=== PATIENT | female | born 1955 | race Caucasian/White ===

== ENCOUNTER 2017-01-09 12:50 | Emergency (ER) | payer SELFPAY ==
[~2017-01-09] VITALS: Ht 170.2 cm; Wt 68.0 kg
[~2017-01-09 12:50] MED LIST: MECL-62 PO
[2017-01-09 13:05] VITALS: BP 188/87; PULSE 85; RESP 18; TEMP 97.5; O2SAT 96
[2017-01-09] MEDS ORDERED: LORazepam 2 MG/ML VIAL IV PUSH ONE (13:15)
[2017-01-09] MEDS ORDERED: SODIUM CHLORIDE 0.9% FLUSH 10 ML FLUSH IVF PRN (13:15)
[2017-01-09] MEDS ORDERED: ASPIRIN 81 MG CHEW TAB PO ONE (13:15)
[2017-01-09 13:17] VITALS: O2SAT 96
[2017-01-09 13:35] LABS: AUTOMATED NEUTROPHIL # 5.8 TH/MM3 (1.8-7.7); BASOPHIL # 0.1 TH/MM3 (0-0.2); BASOPHIL % 1.2 % (0.0-2.0); EOSINOPHIL % 0.5 % (0.0-4.0); HEMATOCRIT 45.8 % (35.0-46.0); HEMO FLAGS DIFF FINAL; LYMPH % 33.2 % (9.0-44.0); LYMPHOCYTE # 3.2 TH/MM3 (1.0-4.8); MEAN CELL VOLUME 91.4 FL (80.0-100.0); MEAN CORPUSCULAR HEMOGLOBIN 30.9 PG (27.0-34.0); MEAN CORPUSCULAR HGB CONC 33.7 % (32.0-36.0); MONO % 4.8 % (0.0-8.0); NEUT % 60.3 % (16.0-70.0); PLATELET COUNT 196 TH/MM3 (150-450); RED BLOOD COUNT 5.01 MIL/MM3 (4.00-5.30); RED CELL DISTRIBUTION WIDTH 13.7 % (11.6-17.2); WHITE BLOOD COUNT 9.6 TH/MM3 (4.0-11.0)
--- NOTE | 2017-01-09 13:37 | RADHPO ---
EXAM DATE/TIME: 01/09/2017 13:12 [facility] COMPARISON: No previous studies available for comparison. INDICATIONS : Dizziness. Blurred vision. RADIATION DOSE: 64.31 CTDIvol (mGy) MEDICAL HISTORY : Cerebrovascular disease. SURGICAL HISTORY : Hysterectomy. ENCOUNTER: Initial ACUITY: 1 day PAIN SCALE: 0/10 LOCATION: cranial TECHNIQUE: Multiple contiguous axial images were obtained of the head. Using automated exposure control and adj ustment of the mA and/or kV according to patient size, radiation dose was kept as low as reasonably a chievable to obtain optimal diagnostic quality images. FINDINGS: CEREBRUM: The ventricles are normal for age. No evidence of midline shift, mass lesion, hemorrhage or acute in farction. No extra-axial fluid collections are seen. POSTERIOR FOSSA: The cerebellum and brainstem are intact. The 4th ventricle is midline. The cerebellopontine angle i s unremarkable. EXTRACRANIAL: The visualized portion of the orbits is intact. SKULL: The calvaria is intact. No evidence of skull fracture. CONCLUSION: 1. No acute atrial abnormality identified. Merlin Jackson MD on January 09, 2017 at 13:33 Board Certified Radiologist. This report was verified electronically.
[2017-01-09 13:42] LABS: CHLORIDE 102 MEQ/L (98-107); POTASSIUM 4.1 MEQ/L (3.5-5.1); SODIUM (NA) 140 MEQ/L (136-145)
[2017-01-09 13:49] LABS: ANION GAP 10 MEQ/L (5-15); BLOOD UREA NITROGEN 9 MG/DL (7-18); MAGNESIUM 2.1 MG/DL (1.5-2.5)
--- NOTE | 2017-01-09 13:49 | RADHPO ---
EXAM DATE/TIME: 01/09/2017 13:37 [facility] COMPARISON: No previous studies available for comparison. INDICATIONS : Chest pain. Short of breath. Blurred vision. MEDICAL HISTORY : CVA. SURGICAL HISTORY : Hysterectomy. ENCOUNTER: Initial ACUITY: 1 day PAIN SCORE: 0/10 LOCATION: chest FINDINGS: A single view of the chest demonstrates the lungs to be symmetrically aerated without evidence of mas s, infiltrate or effusion. The cardiomediastinal contours are unremarkable. Osseous structures are intact. CONCLUSION: No acute disease. Julito Jackson MD FACR on January 09, 2017 at 13:47 Board Certified Radiologist. This report was verified electronically.
[2017-01-09 13:51] LABS: ALT (GPT) 19 U/L (10-53); AST (GOT) 29 U/L (15-37); GLOMERULAR FILTRATION RATE 77 ML/MIN (>89)
[2017-01-09 13:53] LABS: TOTAL BILIRUBIN ADULT 0.6 MG/DL (0.2-1.0)
[2017-01-09 13:54] LABS: ALKALINE PHOSPHATASE 92 U/L (45-117); CREATINE KINASE 130 U/L (26-192)
[2017-01-09 14:06] LABS: CKMB LESS THAN 0.5 NG/ML (0.5-3.6)
[2017-01-09 14:21] LABS: APTT (PATIENT) 26.8 SEC (24.3-30.1); PROTHROMBIN TIME - PATIENT 10.7 SEC (9.8-11.6)
--- NOTE | 2017-01-09 14:21 | PD ---
HPI . Feeling funny all over Chief Complaint: Chest Pain Time Seen by Provider: 13:07 Travel History International Travel<30 days: No Contact w/Intl Traveler<30days: No Traveled to known affect area: No History of Present Illness HPI Patient presents stating that she feels funny all over. She is tremulous. She states her eyes are crossed. She states that her forehead feels like it swollen. This all started about 10 AM. She reports that a friend of hers just a few days ago. She states that her symptoms are severe. She denies any exacerbating or relieving factors. PFSH Past Medical History Cerebrovascular Accident: Yes (AGE 21 NO RESIDUAL WEAKNESS) Tetanus Vaccination: < 5 Years Influenza Vaccination: No ?: Not Past Surgical History Hysterectomy: Yes Social History Alcohol Use: No Tobacco Use: Yes (1/2 PACK DAY) Substance Use: Yes (MARIJUANA AT TIMES) Allergies-Medications (Allergen,Severity, Reaction): Coded Allergies: No Known Allergies (Unverified , 01/09/17) Reported Meds & Prescriptions Reported Meds & Active Scripts Active No Active Prescriptions or Reported Medications Review of Systems Except as stated in HPI: all other systems reviewed are Neg General / Constitutional: No: Fever, Chills Eyes: Positive: Diploplia, Blurred Vision HENT: Positive: Other (forehead feel swollen) Neurologic: Positive: Tremor, Paresthesia Physical Exam Narrative GENERAL: Patient is visibly tremulous. SKIN: Warm and dry. HEAD: Atraumatic. Normocephalic. EYES: Pupils equal and round. Extraocular movements are intact. ENT: No nasal bleeding or discharge. Mucous membranes pink and moist. NECK: Trachea midline. Neck is supple. CARDIOVASCULAR: Regular rate and rhythm. Heart sounds are normal. RESPIRATORY: No accessory muscle use. Lungs are clear with full air movement throughout. GASTROINTESTINAL: Abdomen soft, non-tender, nondistended. MUSCULOSKELETAL: No obvious deformities. No edema. NEUROLOGICAL: Awake and alert. No obvious cranial nerve deficits. Motor grossly within normal limits. Normal speech. Normal [id number] exam. PSYCHIATRIC: Appropriate mood and affect; insight and judgment normal. Data Data Last Documented VS Vital Signs Date Time Temp Pulse Resp B/P Pulse Ox O2 Delivery O2 Flow Rate FiO2 01/09/17 13:17 96 Room Air 01/09/17 13:08 85 01/09/17 13:05 97.5 18 188/87 Orders Ckmb (Isoenzyme) Profile (01/09/17 13:07) Complete Blood Count With Diff (01/09/17 13:07) Comprehensive Metabolic Panel (01/09/17 13:07) Magnesium (Mg) (01/09/17 13:07) Prothrombin Time / Inr (Pt) (01/09/17 13:07) Act Partial Throm Time (Ptt) (01/09/17 13:07) Troponin I (01/09/17 13:07) Chest, Single Ap (01/09/17 13:07) Ecg Monitoring (01/09/17 13:07) Iv Access Insert/Monitor (01/09/17 13:07) Oximetry (01/09/17 13:07) Aspirin Chew (Aspirin Chew) (01/09/17 13:15) Sodium Chloride 0.9% Flush (Ns Flush) (01/09/17 13:15) Lorazepam Inj (Ativan Inj) (01/09/17 13:15) Ct Brain W/O Iv Contrast(Rout) (01/09/17 13:07) CKMB (01/09/17 13:00) CKMB% (01/09/17 13:00) Labs Laboratory Tests Test 01/09/17 13:00 White Blood Count 9.6 TH/MM3 Red Blood Count 5.01 MIL/MM3 Hemoglobin 15.5 GM/DL Hematocrit 45.8 % Mean Corpuscular Volume 91.4 FL Mean Corpuscular Hemoglobin 30.9 PG Mean Corpuscular Hemoglobin 33.7 % Concent Red Cell Distribution Width 13.7 % Platelet Count 196 TH/MM3 Mean Platelet Volume 10.4 FL Neutrophils (%) (Auto) 60.3 % Lymphocytes (%) (Auto) 33.2 % Monocytes (%) (Auto) 4.8 % Eosinophils (%) (Auto) 0.5 % Basophils (%) (Auto) 1.2 % Neutrophils # (Auto) 5.8 TH/MM3 Lymphocytes # (Auto) 3.2 TH/MM3 Monocytes # (Auto) 0.5 TH/MM3 Eosinophils # (Auto) 0.0 TH/MM3 Basophils # (Auto) 0.1 TH/MM3 CBC Comment DIFF FINAL Differential Comment Prothrombin Time 10.7 SEC Prothromb Time International 1.0 RATIO Ratio Activated Partial 26.8 SEC Thromboplast Time Sodium Level 140 MEQ/L Potassium Level 4.1 MEQ/L Chloride Level 102 MEQ/L Carbon Dioxide Level 28.0 MEQ/L Anion Gap 10 MEQ/L Blood Urea Nitrogen 9 MG/DL Creatinine 0.76 MG/DL Estimat Glomerular Filtration 77 ML/MIN Rate Random Glucose 103 MG/DL Calcium Level 9.0 MG/DL Magnesium Level 2.1 MG/DL Total Bilirubin 0.6 MG/DL Aspartate Amino Transf 29 U/L (AST/SGOT) Alanine Aminotransferase 19 U/L (ALT/SGPT) Alkaline Phosphatase 92 U/L Total Creatine Kinase 130 U/L Creatine Kinase MB LESS THAN 0.5 NG/ML Troponin I LESS THAN 0.02 NG/ML Total Protein 8.0 GM/DL Albumin 4.2 GM/DL [facility] Medical Decision Making Medical Screen Exam Complete: Yes Emergency Medical Condition: Yes Medical Record Reviewed: Yes (medical history significant for COPD, hepatitis C , multiple sclerosis.) Interpretation(s) EKG shows a sinus rhythm with left axis deviation. No ST segment elevation or depression. EKG is unchanged from previous. Differential Diagnosis Differential diagnosis of dizziness includes but is not limited to vertigo, dehydration, acute blood loss, sepsis, ACS Narrative Course Patient presents for the evaluation of feeling funny all over. He defers just a few days ago. She is visibly tremulous. CBC & BMP Diagram 01/09/17 13:00 Cardiac enzymes are negative. LFTs are normal. Last Impressions Head CT 01/09/17 1307 Signed Impressions: Service Date/Time: Monday, January 09, 2017 13:12 - CONCLUSION: 1. No acute atrial abnormality identified. Merlin Jackson MD Chest X-Ray 01/09/17 3954 Signed Impressions: Service Date/Time: Monday, January 09, 2017 13:37 - CONCLUSION: No acute disease. Julito Jackson MD FACR The chest x-ray was independently viewed by me. Diagnosis Primary Impression: Tremulousness Scripts Lorazepam (Ativan)1 Mg Tab1 Mg PO Q6H PRN (ANXIETY AND/OR AGITATION) #10 TAB Ref 0 Prov:Annamarie Butler MD 01/09/17 Disposition: 01 DISCHARGE HOME Condition: Stable Annamarie Butler MD Jan 09, 2017 14:21
[2017-01-09] MEDS ORDERED: LORA-474 PO (14:25)
[2017-01-09 14:43] VITALS: BP 132/82
--- NOTE | 2017-01-10 14:37 | EKG ---
Date Performed: 01/09/2017 Time Performed: 12:53:20 PTAGE: 61 years EKG: Sinus rhythm Left axis deviation Poor R wave progression - probable normal variant Compared to prior tracing no s ignificant change Borderline ECG PREVIOUS TRACING : 10/27/2013 12.10 DOCTOR: Donnell Zhang Interpretating Date/Time 01/10/2017 14:34:18
== END 2017-01-09 14:56 | disposition home or self-care (01) ==
LOC: PHED 12:50
DX: R25.1 Tremor, unspecified (principal); R94.31 Abnormal electrocardiogram [ECG] [EKG]; H53.8 Other visual disturbances; H53.2 Diplopia; J44.9 Chronic obstructive pulmonary disease, unspecified; B19.20 Unspecified viral hepatitis C without hepatic coma; G35 Multiple sclerosis; F17.210 Nicotine dependence, cigarettes, uncomplicated; Z86.73 Personal history of transient ischemic attack (TIA), and cerebral infarction without residual deficits
CPT/HCPCS: 70450; 71010; 80053; 82550; 82552; 83735; 84484; 85025; 85610; 85730; 93005; 96374; 99284; J2060